=== PATIENT | female | born 1975 | race Caucasian/White ===

== ENCOUNTER → 2022-01-06 | Outpatient (CLI) | payer OTHER | LOC: KOH-I 14:26 | DX: M79.641 Pain in right hand (principal); M54.2 Cervicalgia; M54.6 Pain in thoracic spine; M54.50 Low back pain, unspecified; R05.9 Cough, unspecified; M25.562 Pain in left knee | CPT/HCPCS: 71046; 72040; 72070; 72100; 73130; 73562 ==

== ENCOUNTER 2022-04-30 18:51 | Emergency (ER) | payer OTHER ==
[2022-04-30 19:16] LABS: HEMOGLOBIN 15.1 gm/dl (12.3-15.3); RED BLOOD COUNT 4.63 M/UL (4.00-5.10); WHITE BLOOD COUNT 7.9 K/UL (4.5-11.0)
[2022-04-30] MEDS ORDERED: POTASSIUM CHLO20 ME1 PO (21:18)
== END 2022-04-30 21:31 | disposition home or self-care (01) ==
LOC: ER1 18:51
PROVIDERS: Nurse Practitioner
DX: U07.1 COVID-19 (principal); E87.6 Hypokalemia; F17.210 Nicotine dependence, cigarettes, uncomplicated; I10 Essential (primary) hypertension; Z90.89 Acquired absence of other organs; Z90.49 Acquired absence of other specified parts of digestive tract; Z88.0 Allergy status to penicillin
CPT/HCPCS: 0240U; 71045; 80053; 82550; 82553; 84484; 85025; 93005; 96374; 99285; J2405